=== PATIENT | male | born 1965 | race Caucasian/White ===

== ENCOUNTER → 2022-04-23 10:45 | Outpatient (BNVA) | payer BC, SELFPAY | PROVIDERS: Visit Provider Family Medicine | DX: I10 Essential (primary) hypertension (principal); E11.9 Type 2 diabetes mellitus without complications; K21.9 Gastro-esophageal reflux disease without esophagitis; Z13.220 Encounter for screening for lipoid disorders; Z13.6 Encounter for screening for cardiovascular disorders; R07.9 Chest pain, unspecified; Z82.49 Family history of ischemic heart disease and other diseases of the circulatory system | CPT/HCPCS: 80053; 80061; 83036 ==

== ENCOUNTER 2022-06-18 11:18 | Outpatient (CLI) | payer BC, SELFPAY ==
--- NOTE | 2022-06-18 | ECG_ITS ---
[facility] Test Date: 2022-06-18 Pat Name: John Lama Department: Room: Gender: Male Senior Data Scientist: : 1965 Requested By: Rima Estrella Order Number: [id number] Arnold MD: Kira Dunbar M.D. Interpretive Statements NAME OF STUDY: TREADMILL STRESS TEST INDICATION: CHEST PAIN, FAMILY HX OF STENTS Baseline blood pressure of 146/83 mm Hg, heart rate of 64 beats per minute and oxygen saturation of 93%. EKG showed normal sinus rhythm. Normal ST-Ts. The patient exercised for 8 minutes 26 seconds on a standard Wil protocol. Patient attained a maximum heart rate of 146 beats per minute(89% of the maximum predicted heart rate) with a blood pressure at the peak exercise of 215/111 mm Hg and oxygen saturation of 95%. The EKG at the peak exercise revealed sinus tachycardia with no significant ST-T wave changes. Patient did not have any chest pain or any significant arrhythmis with the exercise During the recovery phase, there were no new changes. Blood pressure at the end of the recovery phase was 142/69 mm Hg with a heart rate of 97 beats per minute and oxygen saturation 94%. CONCLUSION: 1. Normal EKG response to treadmill exercise. 2. No exercise-induced chest pain or cardiac arrhythmia. 3. Excellent exercise tolerance, attained a maximum of 10.2 METs. Maximum VO2 35.7 mL/kg/min. 4. Baseline hypertension with hypertensive response to exercise. 5. Morales treadmill score of 6 suggestive of low risk. Electronically Signed On 06-19-2022 17:52:51 CDT by Kira Dunbar M.D. [id number]
[2022-06-18 11:56] VITALS: BMI 24.4
[2022-06-18 12:46] VITALS: BP 145/91; PULSE 89
== END 2022-06-18 11:19 | disposition home or self-care (01) ==
LOC: CDL 11:23
PROVIDERS: Visit Provider Family Medicine
DX: R07.9 Chest pain, unspecified (principal); Z82.49 Family history of ischemic heart disease and other diseases of the circulatory system; I10 Essential (primary) hypertension
CPT/HCPCS: 93017

== ENCOUNTER → 2022-08-20 10:48 | Outpatient (BNVA) | payer BC, SELFPAY | PROVIDERS: PCP Family Medicine; Visit Provider Family Medicine | DX: I10 Essential (primary) hypertension (principal); E11.9 Type 2 diabetes mellitus without complications; K57.92 Diverticulitis of intestine, part unspecified, without perforation or abscess without bleeding; R82.998 Other abnormal findings in urine; K85.90 Acute pancreatitis without necrosis or infection, unspecified | CPT/HCPCS: 80053; 81000; 83036; 83690; 85025; 87086 ==

== ENCOUNTER 2022-10-18 11:03 | Emergency (ER) | payer BC, SELFPAY ==
[2022-10-18 11:30] VITALS: BP 127/81; PULSE 96; RESP 14; TEMP 36.8; O2SAT 97; BMI 25.1
--- NOTE | 2022-10-18 12:46 | CT_ITS ---
WS: [id number] CT ABDOMEN PELVIS TECHNIQUE: Contrast-enhanced CT of the abdomen and pelvis with coronal and sagittal reformatted image s. CLINICAL INFORMATION: abd pain COMPARISON: None. DLP: 635.[address] scans at [facility] use at least one of these dose optimization techniques: automated e xposure control; mA and/or kV adjustment per patient size (includes targeted exams where dose is matc hed to clinical indication); or iterative reconstruction. FINDINGS: Prior postoperative changes of Whipple procedure. Inflammatory stranding and edema about the residual pancreas at the pancreaticojejunostomy anastomosis suspicious for acute pancreatitis. Associated inf lammatory stranding and edema with soft tissue thickening. Dilatation of the distal pancreatic duct. No evidence of drainable fluid collection or pseudocyst. Surrounding prominent lymph nodes likely armaan ctive. Mild diffuse fatty infiltration of the liver. Mild splenomegaly. Varices in the upper abdomen and gas troesophageal junction. Portal vein and splenic vein are patent. Normal caliber abdominal aorta. Zara ac and SMA are patent. Mild aortic calcification. Small esophageal hiatal hernia. Small amount of pneumobilia in the LEFT hepatic lobe. Lung bases are well aerated. Adrenal glands are normal. Tiny LEFT adrenal adenoma measuring 10 mm. Normal renal parenchymal enhancement. No hydronep hrosis. Small bilateral renal cysts. Small fat-containing umbilical hernia. No herniated bowel. Slightly prominent prostate measuring 4.[address]/CT abdomen pelvis w con* [id number] IMPRESSION: 1. Inflammatory stranding and edema with soft tissue thickening and induration at the pancreaticojejunostomy anastomosis suspicious for acute pancreatitis. N o drainable fluid collections. Recommend follow-up to resolution. Recurrence is not entirely excluded. 2. A few prominent lymph nodes in the central mesentery likely reactive. 3. Prior postoperative changes Whipple procedure. 4. Small esophageal hiatal hernia. 5. Hepatomegaly with varices in the upper abdomen. Notified Den Husain DO at 10/18/2022 3:38 PM.
[2022-10-18 14:16] LABS: Basophils % 0.3 %; Eosinophils # 0.1 10^3/uL (0.0-0.8); Eosinophils % 0.6 %; Hematocrit 45.9 % (42.0-52.0); Hemoglobin 15.3 g/dL (11.7-16.6); Lymphocytes # 1.1 10^3/uL (0.8-4.8); Lymphocytes % 11.1 %; Mean Corpuscular HGB Conc 33.3 g/dL (30.0-36.0); Mean Platelet Volume 11.8 fL (7.4-10.4); Monocytes # 0.7 10^3/uL (0.2-0.9); Monocytes % 7.7 %; Nucleated Red Blood Cells % 0 %; Platelet Count 158 10^3/cmm (130-400); Red Blood Count 4.78 10^6/uL (4.1-5.3); Red Cell Distribution Width 14.7 % (12.1-15.1); White Blood Count 9.6 10^3/uL (4.0-10.0)
[2022-10-18 14:38] LABS: Alanine Aminotransferase 47 U/L (0-41); Albumin Level 4.1 g/dL (3.5-5.2); Alkaline Phosphatase 314 U/L (40-130); Aspartate Amino Transferase 34 U/L (0-40); Blood Urea Nitrogen 19 mg/dL (6-20); Calcium 9.8 mg/dL (8.5-10.5); Carbon Dioxide 25 mmol/L (22-29); Chloride 94 mmol/L (98-107); Globulin 3.6 g/dL (1.3-4.6); Glomerular Filtration Rate 68.8 mL/min (90-130); Glucose 134 mg/dL (65-115); Lipase 86 U/L (13-60); Osmolality Calculated 278 mOsm/kg (285-295); Sodium 132 mmol/L (136-145); Total Protein 7.7 g/dL (6.6-8.7)
[2022-10-18] MEDS: iohexol 350 mg/mL 500 mL Btl (per mL) IV (15:08)
[2022-10-18] MEDS: sodium chloride 0.9% 1,000 ML 999 ML IV (15:21)
--- NOTE | 2022-10-18 15:44 | W.ED.ABDPA2 ---
HPI - Abdominal Pain General: Chief Complaint: Abdominal Pain Stated Complaint: dr campos for abd pain Time Seen by Provider: 10/18/22 14:35 Source: patient and family Mode of arrival: ambulatory Limitations: no limitations History of Present Illness: Patient comes in because of abdominal pain. He is having worsening pain over the past week. He states it seems to be associated mostly with eating or drinking but on occasion he has had a couple of episodes where he was not associated with those activities. He has a history of recurrent pancreatitis in the past. He states he had a Whipple procedure in [place] done several years ago as well as had biliary stent placed post that procedure. He does admit to drinking alcohol more frequently recently. He states he did quit drinking for period of time but is resumed drinking again he states every other day. He denies any fevers or chills. He states he has had no change in his stool color or consistency. He is making urine normally he states. Associated Symptoms: Reports nausea; Denies chills, constipation, dysuria, fever(s), hematochezia, melena and vomiting Review of Systems Const: Denies: fever(s) or chills Eyes: Denies: change in vision ENMT: Denies: throat pain, odynophagia, nasal congestion or nasal obstruction Card: Denies: chest pain, palpitations or irregular heart rhythm Resp: Denies: dyspnea, productive cough or non-productive cough GI: Reports: abdominal pain and nausea; Denies: vomiting, constipation, hematochezia or melena : Denies: flank pain, difficulty urinating, dysuria or urinary frequency Musc: Denies: neck pain, back pain, extremity pain or extremity swelling Skin/Breast: Denies: rash or pruritus Neuro: Denies: headache(s), numbness in extremities or weakness in extremities Psych: Denies: anxiety or depression Endo: Denies: polyuria or polydipsia PFSH ED PFSH: Medical History History of chronic pancreatitis Surgical History History of appendectomy History of pancreaticoduodenectomy History of tonsillectomy Family History Mother Diabetes S/P coronary artery stent placement Myocardial infarction Father S/P coronary artery stent placement Social History Smoking and tobacco status: former smoker Physical Exam Narrative: EXAM NARRATIVE: Patient is alert and speaks in complete sentences without dyspnea. His speech is goal-directed. Const: COMMON NORMALS: no acute distress, average body habitus and patient oriented x3 GENERAL APPEARANCE: cooperative HENMT: COMMON NORMALS: normocephalic, Normal nasal mucous membranes and turbinates present, moist oral mucous membranes and oropharynx normal HEAD & SCALP: normocephalic NOSE: Normal nasal mucous membranes and turbinates present Eye: COMMON NORMALS: Equal, round and reactive pupils present, EOMs intact bilaterally, conjunctivae normal and no scleral icterus CONJUNCTIVA: Yes conjunctivae normal PUPIL: Yes Equal, round and reactive pupils present Neck/C-Spine: COMMON NORMALS: full ROM, no lymphadenopathy, supple and no JVD Chest: COMMONS NORMALS: normal inspection of the chest and normal palpation of entire chest wall Resp: COMMON NORMALS: normal respiratory effort, No use of accessory muscles and clear to auscultation bilaterally AUSCULTATION: clear to auscultation bilaterally Cardio: COMMON NORMALS: no JVD, regular rate, No murmurs present (Cardio) and Peripheral pulses 2+ throughout RATE: regular rate PERIPHERAL PULSES: Peripheral pulses 2+ throughout GI: OTHER: Abdominal examination reveals slight distention but soft to palpation. He has 2 discrete Rodger umbilical areas which protrude somewhat with increased abdominal pressure but easily reduced. He has no evidence of rebound, guarding etc. He has a well-healed midline surgical scar. No fluid wave noted. : COMMON NORMALS: Yes no CVA tenderness BLADDER/KIDNEY EXAM: Yes no CVA tenderness Back/Pelvis: COMMON NORMALS: no CVA tenderness, thoracic and lumbar spine normal to inspection, no thoracic nor lumbar tenderness and thoraco-lumbar ROM normal Extremity: COMMON NORMALS: normal to inspection, full ROM, capillary refill normal, no calf tenderness and no pedal edema Neuro: COMMON NORMALS: patient oriented x3, moves all extremities and no focal motor deficits CRANIAL NERVES: Yes CN normal except as noted Psych: COMMON NORMALS: mental status grossly normal Skin: COMMON NORMALS: no rashes or lesions noted, turgor normal and no jaundice GENERAL SKIN EXAM: no rashes or lesions noted and turgor normal Course Reevaluation(s): Reevaluation #1: Patient reexamined. No new or focal findings on reexamination. He is comfortable and has no pain at this time. We reviewed his findings and treatment recommendations. We discussed in detail the need to avoid alcohol of any kind absolutely. He has recurrent pancreatitis despite his normal lipase. He is stable and suitable for management as an outpatient. Both he and his spouse voiced understanding of our discussion. Time: 16:38 Vital Signs: Vital signs: Vital Signs Temperature 98.2 F 10/18/22 11:30 Pulse Rate 96 10/18/22 11:30 Respiratory Rate 14 10/18/22 11:30 Blood Pressure 127/81 10/18/22 11:30 Pulse Oximetry 97 10/18/22 11:30 Oxygen Delivery Me thod 10/18/22 11:30 MDM - Abdominal Pain Medical Decision Making Patient with a known history of pancreatitis which is been present off and on for several years. He had a prior pseudocyst resection and then a subsequent Whipple. He did stop drinking for approximately 2 years but admits to drinking on a very regular and heavy basis for the past year. His findings today support recurrent pancreatitis. He is stable without any other perturbations in his biochemistry. We discussed the absolute need to avoid alcohol which she acknowledges. We will discharge him on pancreatic enzymes as well as nonopiate pain relievers to use for the next several days. We discussed return precautions. All questions were answered. Stable for discharge. Medical Records I reviewed the patient's medical records. Lab Data I reviewed the patient's lab results. 10/18/22 14:04 10/18/22 14:04 Labs/Radiology: Radiology Impressions Abdomen/Pelvis CT 10/18/22 12:46 IMPRESSION: 1. Inflammatory stranding and edema with soft tissue thickening and induration at the pancreaticojejunostomy anastomosis suspicious for acute pancreatitis. No drainable fluid collections. Recommend follow-up to resolution. Recurrence is not entirely excluded. 2. A few prominent lymph nodes in the central mesentery likely reactive. 3. Prior postoperative changes Whipple procedure. 4. Small esophageal hiatal hernia. 5. Hepatomegaly with varices in the upper abdomen. Notified Den Husain DO at 10/18/2022 3:38 PM. Laboratory Results WBC 9.6 10^3/uL (4.0-10.0) 10/18/22 14:04 RBC 4.78 10^6/uL (4.1-5.3) 10/18/22 14:04 Hgb 15.3 g/dL (11.7-16.6) 10/18/22 14:04 Hct 45.9 % (42.0-52.0) 10/18/22 14:04 MCV 96.0 fl (80-94) H 10/18/22 14:04 MCH 32.0 pg (28.0-34.0) 10/18/22 14:04 MCHC 33.3 g/dL (30.0-36.0) 10/18/22 14:04 RDW 14.7 % (12.1-15.1) 10/18/22 14:04 Plt Count 158 10^3/cmm (130-400) 10/18/22 14:04 MPV 11.8 fL (7.4-10.4) H 10/18/22 14:04 Neut % (Auto) 80.0 % 10/18/22 14:04 Lymph % (Auto) 11.1 % 10/18/22 14:04 [place] % (Auto) 7.7 % 10/18/22 14:04 Eos % (Auto) 0.6 % 10/18/22 14:04 Baso % (Auto) 0.3 % 10/18/22 14:04 Neut # (Auto) 7.70 10^3/uL (1.8-7.7) 10/18/22 14:04 Lymph # (Auto) 1.1 10^3/uL (0.8-4.8) 10/18/22 14:04 Charlotte # (Auto) 0.7 10^3/uL (0.2-0.9) 10/18/22 14:04 Eos # (Auto) 0.1 10^3/uL (0.0-0.8) 10/18/22 14:04 Baso # (Auto) 0.0 10^3/uL (0.0-0.1) 10/18/22 14:04 Nucleated RBC % (auto) 0 % 10/18/22 14:04 Nucleated RBCs # 0.0 /100WBC 10/18/22 14:04 Sodium 132 mmol/L (136-145) L 10/18/22 14:04 Potassium 5.0 mmol/L (3.5-5.1) 10/18/22 14:04 Chloride 94 mmol/L (98-107) L 10/18/22 14:04 Carbon Dioxide 25 mmol/L (22-29) 10/18/22 14:04 Anion Gap 18.0 (5-19) 10/18/22 14:04 BUN 19 mg/dL (6-20) 10/18/22 14:04 Creatinine 1.1 mg/dL (0.7-1.2) 10/18/22 14:04 GFR Calculation 68.8 mL/min (90-130) L 10/18/22 14:04 Glucose 134 mg/dL (65-115) H 10/18/22 14:04 Calculated Osmolality 278 mOsm/kg (285-295) L 10/18/22 14:04 Calcium 9.8 mg/dL (8.5-10.5) 10/18/22 14:04 Total Bilirubin 1.0 mg/dL (0.15-1.2) 10/18/22 14:04 AST 34 U/L (0-40) 10/18/22 14:04 ALT 47 U/L (0-41) H 10/18/22 14:04 Alkaline Phosphatase 314 U/L (40-130) H 10/18/22 14:04 Total Protein 7.7 g/dL (6.6-8.7) 10/18/22 14:04 Albumin 4.1 g/dL (3.5-5.2) 10/18/22 14:04 Globulin 3.6 g/dL (1.3-4.6) 10/18/22 14:04 Lipase 86 U/L (13-60) H 10/18/22 14:04 Discharge Plan Discharge Patient Disposition: Home Clinical Impression: Pancreatitis Condition: Stable Prescriptions: New Creon 12,000-38,000 -60,000 unit capsule,delayed release(DR/EC) 1 cap PO TID Qty: 90 0RF Rx Instructions: administer with meals and/or snacks ketorolac 10 mg tablet 10 mg PO Q8H PRN (Reason: pain) 5 Days Qty: 14 0RF No Action Jardiance 25 mg tablet 25 mg PO DAILY 90 Days Qty: 90 2RF pantoprazole 20 mg tablet,delayed release (DR/EC) 20 mg PO DAILY 90 Days Qty: 90 2RF ondansetron HCl 4 mg tablet 4 mg PO Q8H PRN (Reason: nausea and vomiting) 5 Days Qty: 15 1RF tramadol 50 mg tablet 50 mg PO Q6H PRN (Reason: pain) 7 Days Qty: 20 0RF candesartan 16 mg tablet 16 mg PO DAILY 90 Days Qty: 90 2RF glipizide 2.5 mg tablet extended release 24hr 2.5 mg PO DAILY 30 Days Qty: 30 5RF Discharge Orders: Discharge ED (Routine); Ordered 10/18/22 Ordered By: Den Husain Referrals: Rima Estrella MD [Primary Care Provider] - Discharge Diet: Advance as tolerated, Low Fat and Full LIquid Discharge Activity: Increase activity as tolerated Patient Instructions: Pancreatitis (ED), Opioid Safety, Pain Management Activity Restrictions/Additional Instructions: As we discussed you have inflammation of your pancreas. Do not drink alcohol under any circumstances. Take the pancreatic enzymes up to 3 times daily with meals to help your pancreas recover function. You may use the pain medicine for the next 4 to 5 days as needed for pain. If you develop fever increasing pain or other concerns return to this or the nearest emergency department for reevaluation. Coding Level of Care Code ED Boiler Coverer Helper for Siomara Olivares Exam Comprehensive
[2022-10-18 16:00] VITALS: PULSE 80; RESP 14
== END 2022-10-18 16:58 | disposition home or self-care (01) ==
PROVIDERS: Emergency Provider Emergency Medicine; PCP Family Medicine
DX: K85.90 Acute pancreatitis without necrosis or infection, unspecified (principal); Z79.84 Long term (current) use of oral hypoglycemic drugs; Z87.891 Personal history of nicotine dependence
CPT/HCPCS: 36415; 74177; 80053; 83690; 85025; 96360; 99285; J7030; Q9967

== ENCOUNTER → 2023-02-11 09:35 | Outpatient (BNVA) | payer BC, SELFPAY | PROVIDERS: PCP Family Medicine; Visit Provider Family Medicine | DX: R06.6 Hiccough (principal) | CPT/HCPCS: 71046 ==

== ENCOUNTER → 2023-10-30 10:19 | Outpatient (BNVA) | payer BC, SELFPAY | PROVIDERS: PCP Family Medicine; Visit Provider Family Medicine | DX: E11.9 Type 2 diabetes mellitus without complications (principal); K21.9 Gastro-esophageal reflux disease without esophagitis; K86.1 Other chronic pancreatitis; R10.9 Unspecified abdominal pain; J98.01 Acute bronchospasm; R06.6 Hiccough; I10 Essential (primary) hypertension; K86.0 Alcohol-induced chronic pancreatitis; L98.9 Disorder of the skin and subcutaneous tissue, unspecified | CPT/HCPCS: 80053; 80061; 82150; 83036; 83690; 85025 ==

== ENCOUNTER 2023-11-05 07:53 | Outpatient (CLI) | payer BC, SELFPAY ==
--- NOTE | 2023-11-05 08:00 | CT_ITS ---
WS: [id number] CT ABDOMEN AND PELVIS WITH CONTRAST HISTORY: K86.1 - Other chronic pancreatitis, periumbilical pain, prior Whipple procedure. TECHNIQUE: Imaging performed of the abdomen and pelvis with IV contrast. Single phase imaging of the abdomen. Coronal and sagittal reformats are submitted. All CT scans at [facility] use at [address] one of these dose optimization techniques: automated exposure control; mA and/or kV adjustment per patient size (includes targeted exams where dose is matched to clinical indication); or iterative re construction. IV CONTRAST: Omnipaque 350; 100 mL IV. Oral contrast: No DLP: 313.62 mGy.cm COMPARISON: 10/18/2022 Lower thorax: Lung bases are clear. Heart is normal size. No hiatal hernia. Liver/biliary system: Normal size liver. Pneumobilia is evident. No mass. Normal portal vein. Normal bile ducts. Gallbladder: Prior cholecystectomy. Pancreas: Prior Whipple procedure. Pancreatic head has been surgically removed. The pancreatitis send enlarged pancreas noted on the prior CT has resolved. There is no pancreatic duct dilatation. Spleen: Normal size spleen. No mass or infarct. Adrenal glands: Normal RIGHT adrenal gland. Stable 8 mm nodule associated with the LEFT adrenal gland . Right kidney: Normal size kidney. Small cortical cyst in the lower pole. No obstruction. Left kidney: Normal size. There are several low-attenuation masses throughout the kidney which are st able since 11/05/2022. The mass in the central kidney measures 1.3 x 1.8 cm and is probably a complex cyst. Cannot exclude low-grade neoplasm but there has been no change in size since 10/18/2022 Aorta: Mild atherosclerosis with no aneurysm. Lymphadenopathy: None. Free fluid: None. GI tract: There is mild diffuse wall thickening of the stomach. No mass identified. No obstructive pa ttern. Normal small bowel. There is mild constipation throughout the colon. There is mild asymmetric wall thickening involving the descending colon. Abdominal wall: Fat containing umbilical hernia. Pelvis: Normally distended urinary bladder. No free fluid or adenopathy. Bones: Unremarkable. IMPRESSION: 1. Status post Whipple procedure. No evidence for recurrent pancreatitis. 2. Mild pneumobilia and prior cholecystectomy. 3. There is mild mucosal thickening of the stomach and a portion of the descending colon. This canno t be further evaluated by CT. May be due to gastritis and/or colitis. For further evaluation of the c olon colonoscopy can be performed. 4. No ascites or adenopathy. 5. Stable bilateral renal masses. Majority of these are cysts. There is one mass within the LEFT kid brittany which is not a simple cyst. This could be over low-grade neoplasm but is unchanged since 2.
[2023-11-05] MEDS: iohexol 350 mg/mL 500 mL Btl (per mL) IV (08:18)
== END 2023-11-05 07:54 | disposition home or self-care (01) ==
LOC: RAD 07:53
PROVIDERS: PCP Family Medicine; Visit Provider Family Medicine
DX: K86.1 Other chronic pancreatitis (principal); Z98.890 Other specified postprocedural states; R93.3 Abnormal findings on diagnostic imaging of other parts of digestive tract; Z90.49 Acquired absence of other specified parts of digestive tract; N28.89 Other specified disorders of kidney and ureter
CPT/HCPCS: 74177; Q9967

== ENCOUNTER → 2024-07-29 13:39 | Outpatient (BNVA) | payer BC, SELFPAY | PROVIDERS: PCP Family Medicine; Visit Provider Family Medicine | DX: E11.9 Type 2 diabetes mellitus without complications (principal) | CPT/HCPCS: 80053; 80061; 83036 ==

== ENCOUNTER → 2024-11-03 15:29 | Outpatient (BNVA) | payer BC, SELFPAY | PROVIDERS: PCP Family Medicine; Visit Provider Family Medicine | DX: S30.851A Superficial foreign body of abdominal wall, initial encounter (principal); X58.XXXA Exposure to other specified factors, initial encounter | CPT/HCPCS: 74018 ==

== ENCOUNTER → 2025-02-09 13:56 | Outpatient (BNVA) | payer BC, SELFPAY | PROVIDERS: PCP Family Medicine; Visit Provider Family Medicine | DX: E11.9 Type 2 diabetes mellitus without complications (principal) | CPT/HCPCS: 80053; 80061; 83036 ==

== ENCOUNTER → 2025-09-29 13:31 | Outpatient (BNVA) | payer BC, SELFPAY | PROVIDERS: PCP Family Medicine; Visit Provider Family Medicine | DX: E11.9 Type 2 diabetes mellitus without complications (principal); I10 Essential (primary) hypertension; Z12.5 Encounter for screening for malignant neoplasm of prostate | CPT/HCPCS: 80053; 83036; G0103 ==